=== PATIENT | male | born 1940 | race Caucasian/White ===

== ENCOUNTER 2019-10-16 09:35 | Inpatient (IN) | payer MEDICARE, BC ==
[2019-10-16] VITALS (301 sets, daily range): BP systolic 122–158; BP diastolic 69–105; PULSE 58–73; TEMP 98.1–98.7; O2SAT 74–98
[~2019-10-16] VITALS: Ht 190.5 cm; Wt 111.8 kg
--- NOTE | 2019-10-16 09:25 | NUR ---
Patient transferred in by EMS via stretcher with no complications, connected to bedside monitor, full assessment completed, vital signs stable. Patient has no complaints or concerns and states he has chest pain 3/10 that is unchanged during transport. Heparin gtt assessed and continued per transport orders at 1000u/hr. Heparin bag is 25,000u per 250mL, so gtt is continued at 10ml/hr. notified of patient arrival and is en route to hospital at this time.
[2019-10-16] MEDS ORDERED: TOPROL XL100 MG PO (11:19)
[2019-10-16] MEDS ORDERED: LIPITOR20 MG PO (11:20)
[2019-10-16] MEDS ORDERED: ASPIRIN 81M81 MG/TA2 PO (11:21)
[2019-10-16] MEDS ORDERED: CLARITIN 1010 MG/TAB PO (11:22)
[2019-10-16] MEDS ORDERED: HYGROTON 2525 MG/TAB PO (11:24)
[2019-10-16] MEDS ORDERED: KLOR-CON M2020 MEQ PO (11:25)
[2019-10-16] MEDS ORDERED: CARDURA4 MG PO (11:26)
[2019-10-16 11:41] LABS: BASO # 0.1 (0.0-0.2); BASO % 0.4 % (0.0-2.0); EOS # 0.1 (0.0-0.7); EOS % 0.9 % (0-4.0); GRAN # 8.6 (1.4-6.5); GRAN % 66.9 % (42.2-75.2); HEMATOCRIT 41.9 % (42.0-52.0); HEMOGLOBIN 14.9 g/dl (13.5-18.0); LYMPH # 2.9 (1.2-3.4); LYMPH % 22.7 % (20.0-51.0); MEAN CELL VOLUME 91 fl (80.0-100.0); MEAN CORPUSCULAR HEMOGLOBIN 32 pg (27.0-31.0); MEAN CORPUSCULAR HGB CONC 36 g/dl (33.0-37.0); MEAN PLATELET VOLUME 11.3 fl (7.4-10.4); MONO # 1.1 (0.1-0.6); MONO % 8.8 % (1.7-9.3); PLATELET COUNT 233 K/mm3 (130-400); RED BLOOD COUNT 4.62 M/mm3 (4.20-5.60); REDCELL DISTRIBUTION WIDTH-CV 12.5 % (11.5-14.5)
[2019-10-16 11:42] LABS: PARTIAL THROMBOPLASTIN TIME 70.3 SECONDS (26.0-37.0)
--- NOTE | 2019-10-16 11:58 | NUR ---
Aysha, Metal Machinist RN at bedside to retrieve personal belongings for safe.
--- NOTE | 2019-10-16 12:24 | NUR ---
[place]ino, label designer RN, at bedside to retrieve patient for cardiac catheterization.
--- NOTE | 2019-10-16 12:55 | NUR ---
SEE MERGE DOCUMENTATION FOR MEDICATION ADMINISTRATION TIMES AND INTRA/POST PROCEDURE SEDATION ASSESSMENTS. RIGHT HAND BARBEAU TEST POSITIVE.
--- NOTE | 2019-10-16 14:00 | NUR ---
Patient transferred back to [facility] from label coder by NEIDA Magana. Patient is connected to bedside monitor, vital signs stable, right radial site soft with no hematoma. TR band on and inflated with 18cc per NEIDA Magana's verbal report. No air deflated from TR band at this time.
--- NOTE | 2019-10-16 16:45 | NUR ---
TR band deflated by 5cc at this time. 13cc air should remain in TR band at this time.
[2019-10-16 17:36] LABS: PARTIAL THROMBOPLASTIN TIME 36.5 SECONDS (26.0-37.0)
--- NOTE | 2019-10-16 17:45 | NUR ---
3cc air deflated from TR band. 10cc left in TR band at this time.
--- NOTE | 2019-10-16 18:45 | NUR ---
5cc deflated from TR band. Supposed to be 5cc left in TR band at this time, but TR band looks completely deflated. TR band kept on, but deflated at this time.
--- NOTE | 2019-10-16 19:30 | NUR ---
Bedside shift report given to NEIDA Cameron and care handed over at this time.
--- NOTE | 2019-10-16 20:48 | NUR ---
TR band completely deflated but band left in place. Will continue to monitor. No complaints from patient at this time.
[2019-10-17] VITALS (460 sets, daily range): BP systolic 129–132; BP diastolic 71–95; PULSE 57–77; TEMP 97.8–98.1; O2SAT 34–100
--- NOTE | 2019-10-17 09:30 | NUR ---
All 0900 meds administered - computer malfunction did not save administration - Pharmacist and MD Carlos aware
--- NOTE | 2019-10-17 10:14 | NUR ---
SW met with the patient to discuss the discharge plan. The patient lives in [place] with his , Shobha. The patient denies DME use and is independent with ADLs. The patient's PCP is Dr. Angeles in [place] and patient receives medications from [facility] in [place]. The patient does not have advanced directives in the EMR but was interested in DPOA-HC form. Form provided. The patient plans to return home at discharge with is providing transportation. There are no additional needs at this time.
[2019-10-17 11:05] LABS: HEMATOCRIT 42.2 % (42.0-52.0); HEMOGLOBIN 15.2 g/dl (13.5-18.0); MEAN CELL VOLUME 90 fl (80.0-100.0); MEAN CORPUSCULAR HEMOGLOBIN 32 pg (27.0-31.0); MEAN CORPUSCULAR HGB CONC 36 g/dl (33.0-37.0); MEAN PLATELET VOLUME 10.8 fl (7.4-10.4); PLATELET COUNT 211 K/mm3 (130-400); REDCELL DISTRIBUTION WIDTH-CV 12.5 % (11.5-14.5)
[2019-10-17 11:19] LABS: CALCIUM 9.4 mg/dL (8.4-10.2); CREATININE, serum 1.16 (0.66-1.25); POTASSIUM 3.4 mmol/L (3.4-5.0)
[2019-10-17 11:35] LABS: BAND 1 % (0-10); BASOPHIL 1 % (0-2); EOSINOPHIL 4 % (0-4); LYMPHOCYTE 22 % (20.0-51.0); NEUTROPHILS 60 % (42.0-75.2); PLATELET ESTIMATE NORMAL (NORMAL)
[2019-10-17] MEDS ORDERED: BRILINTA90 MG PO (11:44)
[2019-10-17] MEDS ORDERED: LIPITOR 40MG TA40 MG PO (11:45)
[2019-10-17] MEDS ORDERED: LASIX 40MG40 MG/4 ML IV (11:46)
[2019-10-17] MEDS ORDERED: LASIX 40MG TABL40 MG PO (12:24)
--- NOTE | 2019-10-17 15:53 | NUR ---
The patient was cleared to discharge today, 10/16 with his . There are no additional needs at this time.
== END 2019-10-17 12:00 | disposition home or self-care (01) | DRG 281 ==
LOC: IMCU 09:35
PROVIDERS: Internal Medicine Cardiovascular Disease; ADMIT Student in an Organized Health Care Education/Training Program
PROC: 4A023N7 Measurement of Cardiac Sampling and Pressure, Left Heart, Percutaneous Approach (ICD-10-PCS; principal; 2019-10-16)
PROC: B2151ZZ Fluoroscopy of Left Heart using Low Osmolar Contrast (ICD-10-PCS; 2019-10-16)
PROC: B2111ZZ Fluoroscopy of Multiple Coronary Arteries using Low Osmolar Contrast (ICD-10-PCS; 2019-10-16)
DX: I21.4 Non-ST elevation (NSTEMI) myocardial infarction (principal); I51.81 Takotsubo syndrome; I10 Essential (primary) hypertension; E78.5 Hyperlipidemia, unspecified; D72.829 Elevated white blood cell count, unspecified; N40.0 Benign prostatic hyperplasia without lower urinary tract symptoms; I34.0 Nonrheumatic mitral (valve) insufficiency; Z86.73 Personal history of transient ischemic attack (TIA), and cerebral infarction without residual deficits; Z79.82 Long term (current) use of aspirin; Z87.891 Personal history of nicotine dependence
CPT/HCPCS: 99223-AI; 99239; C1769; C8924; J1644; J1940; J2250; J3010; Q9957